=== PATIENT | male | born 1980 | race Caucasian/White ===

== ENCOUNTER 2021-08-13 06:51 | Day surgery (SDC) | payer OTHER ==
[~2021-08-13 06:51] MED LIST: BUPIVACAINE 0.5% VIAL IJ ONE; XYLOCAINE 1% HCL 20 ML MDV ONE
[2021-08-13] MEDS ORDERED: CEFAZOLIN 2 GM-D5W BAG** 2 GM/50 ML ML IV ONE (07:56)
[2021-08-13] MEDS ORDERED: CEFAZOLIN 2 GM-D5W BAG** 2 GM/50 ML ML IV SCH (08:00)
[2021-08-13] MEDS ORDERED: Lactated Ringers 1,000 ML IV SCH (08:00)
[2021-08-13] MEDS ORDERED: Decadron 4 MG INJ ONE (08:41)
[2021-08-13] MEDS ORDERED: Zofran 4 MG/2 ML VIAL ONE (08:41)
[2021-08-13] MEDS ORDERED: DIPRIVAN 200 MG/20 ML IV ONE (08:41)
[2021-08-13] MEDS ORDERED: Xylocaine-Mpf 2% 5 Ml Vial ONE (08:41)
[2021-08-13] MEDS ORDERED: Versed 2 MG/2 ML Injection ONE (08:42)
[2021-08-13] MEDS ORDERED: SUBLIMAZE 100 MCG/2 ML ONE ×2 (08:42→10:01)
[2021-08-13] MEDS ORDERED: TORAdol 30 mg Injection ONE (09:38)
--- NOTE | 2021-08-13 11:41 | XRAY ---
Indication: Left 1st MTP fusion. Intraoperative fluoroscopy provided for 2 minutes 7 seconds. 23 digital spot images submitted for interpretation ultimately demonstrates 1st MTP fusion with anterior fixation plate and multiple screws. Correlate with intraoperative findings/report.
--- NOTE | 2021-08-13 13:07 | XRAY ---
2 minutes and 7 seconds fluoroscopy time in surgery for fusion of the first metatarsal-phalangeal joint space of the left foot.
[2021-08-13 13:18] VITALS: BP 141/88; PULSE 77; O2SAT 95
--- NOTE | 2021-08-16 08:32 | OP ---
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 2) Left foot pain. 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 2) Left foot pain. PROCEDURE: First metatarsophalangeal joint arthrodesis left foot. SURGEON: Cesar Smith DPM. DIRECTOR OF AUTOMATION: None. ANESTHESIA: General plus a postoperative local. HEMOSTASIS: Ankle tourniquet set to 250 mm of Mercury for 82 minutes. ESTIMATED BLOOD LOSS: Less than 20 cc. MATERIALS: Greg left metatarsophalangeal fusion wire 3.5 mm with a combination of locking and nonlocking screws, 4-0 Monocryl, 3-0 Nylon. INJECTABLES: 30 cc of 1:1 mixture of 1% lidocaine plain and 0.5% bupivacaine plain injected in a Rivera block-type fashion. INDICATION FOR SURGERY: Mykel is a very pleasant 41-year-old male who suffered a fracture to his first proximal phalanx approximately 12 months ago, one year from the date of the surgery. This was an on the job injury that resulted in a fracture which was treated conservatively. The patient was presumed healed by previous physician. However started having indication of post-traumatic arthritis within the first metatarsophalangeal joint. MRI was obtained demonstrating some osteoarthritis that had developed at the first metatarsophalangeal joint. Previous provider allowed for the patient to have an intra-articular injection which by the patient's admission did not alleviate his pain well. The patient had tried carbon fiber inserts in order to limit the mobilization of the joint. However none of this helped the pain that he was experiencing and he has been unable to work due to the severe pain that he has a result of this injury. The patient wished to discuss options on his visit with myself in clinic and when all risks, benefits and complications of each surgical procedure were presented the patient opted to proceed with a fusion due to its definitive nature as alleviating the pain. In his case due to the arthritis may have addressed the pain however was not guaranteed and improved range of motion does not always mean less pain. For that the reason the patient to proceed with the fusion of the first metatarsophalangeal joint. The patient understood all risks, complications and benefits including but not limited to delayed wound healing, nonwound healing, delayed bone healing, nonbone healing, possibility of nonunion and possible need for revision. He understands the risks and the possibility of these complications as well as complications of the result of anesthesia. All of this was described and the patient understands and wishes to proceed with surgical intervention. With this we proceed with surgical intervention today. DESCRIPTION OF PROCEDURE AND FINDINGS: The patient is brought into the OR and placed on the OR table after preoperative assessment by the anesthesia team and placed under general sedation. At this time the left lower extremity was prepped and draped in the typical sterile fashion with a well-padded ankle tourniquet applied and set to 250 mm of Mercury to the left ankle. It is at this time that the left ankle was loaded onto the surgical field. At this time attention was directed to the dorsal aspect of the first metatarsophalangeal joint where a linear incision was made utilizing a 15 blade. Careful dissection was performed in order to prevent any injury to neurovascular structures and in the dissection down to the first metatarsophalangeal joint. The extensor tendon was encountered, freed from its soft tissue attachments and retracted laterally out of the field of visualization. At this time a new 15 blade was utilized to make a J-stroke around the first metatarsophalangeal joint head freeing the capsular structure from the first metaphalangeal joint and exposing the first metatarsal head freely. At this time assessment of the joint was made and determined to have some arthritic changes at the lateral and the central aspect where there was a noted osteochondral defect. At this time a 1.2 mm K-wire was introduced centrally and down the longitudinal cortex of the bone parallel to the longitudinal access of the first metatarsal. At this time a conical reamer was utilized to denude the cartilage off of the distal aspect of the first metatarsal head until the subchondral plate was exposed. Following this the K-wire was removed and then retrograded down the base of the proximal phalanx again following the longitudinal cortex of the proximal phalanx and centrally placed. By hand a cup reamer was utilized to denude the cartilage in this area. Following this combination of curettes and rongeurs was utilized to resurface the bone so that there was good congruity of the joint surfaces for bony apposition. Copious amounts of sterile saline were utilized to flush the surgical site and all the cartilage was removed from the joint. At this time a combination of 2.0 mm drill, curettes, rongeurs and osteotomes were utilized to fenestrate the joint surface, increase the surface area with claw fashion and breaking through the subchondral plate. At this time the bone was prepared for arthrodesis. At this time first metatarsophalangeal large left 3.5 mm Greg plate was introduced to the dorsal aspect of the foot and was pinned proximally. Positioning was assessed and deemed to be adequate under fluoroscopy. At this time a 3.5 mm variable compression screw was introduced from distal medial to proximal lateral compressing the joint eccentrically. At this time the screw was not engaged entirely. The distal aspect of the plate was pinned down and the central hole on the plate was drilled at this point alternating between the first metatarsophalangeal joint 3.5 mm variable compression screw on the eccentric locking screw in the plate. Following this combination of locking and nonlocking screw were utilized to secure the plate to the dorsal surface of the bone. Copious amounts of sterile saline were used to superficially flush the surgical site at this time. Closure was obtained of the capsule utilizing a 4-0 Monocryl in a trauma stitch-type fashion. At this time 4-0 Monocryl was then utilized to coapt the subcutaneous skin edges and a 3-0 Nylon was utilized in the horizontal mattress-type fashion to coapt the surgical site skin in an everted-type fashion. At this time the tourniquet was released. Total tourniquet time was 82 minutes. Following this a well-padded dressing consisting of Betadine, Adaptic, 4x4, Kerlix and Andi was applied to the left lower extremity. The patient was then reversed from anesthesia and returned to the postoperative anesthesia care unit with vital signs stable and vascular status intact. The patient handled the anesthesia and the procedure without complication. Postoperative orders as indicated in the patient's chart.
== END 2021-08-13 13:00 | disposition home or self-care (01) ==
LOC: SDC 06:51
PROVIDERS: ATTEND Podiatrist Foot & Ankle Surgery
DX: M19.172 Post-traumatic osteoarthritis, left ankle and foot (principal); M79.672 Pain in left foot
CPT/HCPCS: 28750; 73630; 76000; J0690; J1100; J1885; J2250; J2405; J2704; J3010